=== PATIENT | female | born 2005 | race African-American/Black ===

== ENCOUNTER 2025-04-12 04:03 | Emergency (ER) | payer BC ==
[~2025-04-12] VITALS: Ht 175.3 cm; Wt 86.2 kg
[2025-04-12] MEDS ORDERED: ACET-3102 PO (04:25)
[2025-04-12] MEDS ORDERED: IBUP-1955 PO (04:25)
[2025-04-12] MEDS ORDERED: NAPROXEN 500 MG TABLET ONE (04:29)
[2025-04-12] MEDS ORDERED: ACETAMINOPHEN 500 MG TABLET ONE (04:29)
[2025-04-12] MEDS: ACETAMINOPHEN 500 MG TABLET PO ONE (04:31)
[2025-04-12] MEDS: NAPROXEN 500 MG TABLET PO ONE (04:31)
[2025-04-12 04:38] LABS: PLATELET COUNT (AUTO) 310 K/uL (179-408); RED BLOOD CELL COUNT(AUTO) 3.82 MIL/uL (3.63-4.92); RED CELL DISTRIBUTION WIDTH 14.5 % (12.3-17.7); WHITE BLOOD COUNT (AUTO) 9.4 K/uL (3.8-11.8)
[2025-04-12 04:44] LABS: CREATININE 0.7 mg/dL (0.6-1.3); SODIUM SERUM 143.0 mmol/L (136-145); UREA NITROGEN, BLOOD 10.0 mg/dL (7-18)
[2025-04-12 04:49] LABS: ASPARTATE AMINOTRANSFERASE 14.0 U/L (15-37); TOTAL PROTEIN, SERUM 7.5 g/dL (6.4-8.2)
[2025-04-12 04:55] LABS: *BILIRUBIN,URIN NEGATIVE (NEGATIVE); *CLARITY,URINE CLEAR (CLEAR); *COLOR,URINE YELLOW (YELLOW); *KETONES,URINE NEGATIVE (NEGATIVE); *PROTEIN,URINE NEGATIVE (NEGATIVE); *UROBILINOGEN,URINE 0.2 E.U./dl (NORMAL); LEUKOCYTE ESTERASE ,URINE NEGATIVE (NEGATIVE); NITRITE, URINE NEGATIVE (NEGATIVE); UGLUCOSE NEGATIVE (NEGATIVE)
[2025-04-12 04:56] LABS: *BLOOD, URINE TRACE (NEGATIVE); *URINE HCG, QUAL NEGATIVE (NEGATIVE)
[2025-04-12 05:04] LABS: SQUAMOUS EPITHELIAL CELL,UR FEW /HPF (NONE SEEN); URINE AMORPHOUS URATE FEW /HPF
[2025-04-12 05:18] VITALS: BP 117/83; O2SAT 100
== END 2025-04-12 05:12 | disposition home or self-care (01) ==
LOC: ER 04:15
DX: R07.9 Chest pain, unspecified (principal)
CPT/HCPCS: 36415; 71045; 83735; 84484; 84703; 85025; A4606; A4663; A9150